=== PATIENT | male | born 1945 | race Caucasian/White ===

== ENCOUNTER 2016-08-23 12:55 | Emergency (ER) | payer MEDICARE, BC ==
[2016-08-23 13:06] VITALS: BP 146/76
--- NOTE | 2016-08-23 13:30 | ERNOTE ---
Medical Problem HPI - Narrative Date of Service: 08/23/16 - General Chief Complaint: Laceration Time Seen by Provider: 08/23/16 13:15 Source: patient Exam Limitations: no limitations - Immun/Allergies/Home Medications Immunizations: IMMUNIZATION HX History of Influenza Vaccine No Hx Pneumococcal Vaccination No Allergies/Adverse Reactions: Allergies Sulfa (Sulfonamide Antibiotics) Allergy (Verified 08/23/16 13:03) Home Medications: HOME MEDICATIONS Aspirin 325 mg PO DAILY 06/17/12 [Last Taken 08/23/16] Atorvastatin Calcium 10 mg PO DAILY 06/17/12 [Last Taken 08/23/16] Amiodarone HCl 200 mg PO DAILY 10/21/13 [Last Taken 08/23/16] Multivitamin [Daily Vitamin] 1 each PO DAILY 10/21/13 [Last Taken 08/23/16] Clopidogrel Bisulfate [Plavix] 75 mg PO DAILY 11/17/15 [Last Taken 08/23/16] Garlic [Odor Free Garlic] 1,000 mg PO DAILY 11/17/15 [Last Taken 08/23/16] Metoprolol Succinate 50 mg PO DAILY 11/17/15 [Last Taken 08/23/16] amLODIPine BESYLATE [Norvasc] 5 mg PO DAILY 11/17/15 [Last Taken 08/23/16] metFORMIN HCL [Glucophage] 500 mg PO BID 11/17/15 [Last Taken 08/23/16] Olmesartan Medoxomil [Benicar] 10 mg PO HS 08/23/16 [Last Taken 08/23/16] - History of Present History Narrative: Patient cut his right thumb last night while cutting potatoes with a kitchen knife. She states he didn't want to come out yesterday but wanted to get it checked to day. Right handed. dT UTD very recently according to the patient. No other injuries. He is on blood thinners and states this has been bleeding off and on. Timing: constant Severity: mild Modifying Factors - (Improves): Present: other - none Modifying Factors - (Worsens): Present: other - none Review of Systems - Review of Systems Constitutional: Absent: fever Respiratory: Absent: shortness of breath Cardiology: Absent: chest pain Neurological: Absent: weakness, numbness - Patient's Past Medical History Patient History - Medical: Diabetes Type 2 Patient History - Cardiac/Respiratory: Hypertension, Hyperlipidemia, Other Patient History - Cancer: No Hx of Cancer Patient History - Surgical Procedures: Back Surgery, Pacemaker, Other Patient History - Other: None - Family History Mother Family History - Medical: Father Family History - Medical: - Social History Living Situations: home Smoking Status: Never smoker Have you smoked in the past 12 months: No Do you dip or chew tobacco: Yes Alcohol Use: occasionally Drug Use: none - Immunizations Hx Pneumococcal Vaccination: No History of Influenza Vaccine: No Physical Exam - Physical Exam General Appearance: Present: alert, no apparent distress Eye Exam: Normal inspection: bilateral Respiratory: Present: no respiratory distress Cardiovascular/Chest: Present: regular rate, rhythm Extremity Exam: Present: other - 1cm avulsion-type laceration right palmar thumb. no active bleeding. No FB. No deep structure involvement noted. No joint involvament. Lac at pad of thumb. No signs of infection. No clear evidence of tendon injury with extension and flexion. Skin Exam: Present: other - 1 cm avulsion-type lac pad right thumb. ED Progress - Vital Signs Patient's Vital Signs:: I have reviewed the patient's vital signs. Vital Signs: Vital Signs 08/23/16 12:59 Temperature 36.5 C Pulse Rate 77 Respiratory 18 Rate Blood Pressure 146/76 O2 Sat by Pulse 97 Oximetry - Progress/Reassessment Chief Complaint: Laceration Progress Note-Subjective: 08/23/16 13:26 This is an old laceration and out of closure window. No evidence of infection. Willbandage and splint. I would not start antibiotics at this point as no deep structure involvement, no infection and he is on blood thinners. Pt agreeable. I discussed warning signs and reasons to return as well as the need for close f/u. Departure - Departure Clinical Impression: Laceration of thumb with delay in treatment Disposition: Home self-care Condition: Stable Instructions: Laceration Care, Adult, [id number] Additional Instructions: Splint for comfort. Close observation. Follow-up with your doctor 3 days for a re-check. Return for fever, signs of infection or if your condition worsens or changes in any way.
== END 2016-08-23 13:36 | disposition home or self-care (01) ==
LOC: ER 12:55
PROC: 2W3GX1Z Immobilization of Right Thumb using Splint (ICD-10-PCS; principal; 2016-08-23)
DX: S61.011A Laceration without foreign body of right thumb without damage to nail, initial encounter (principal); F17.220 Nicotine dependence, chewing tobacco, uncomplicated; W26.0XXA Contact with knife, initial encounter; Y93.G1 Activity, food preparation and clean up; E11.9 Type 2 diabetes mellitus without complications; I10 Essential (primary) hypertension; E78.5 Hyperlipidemia, unspecified